=== PATIENT | female | born 1960 | race Caucasian/White ===

== ENCOUNTER → 2016-09-21 | Day surgery (SDC) | payer BC, OTHER ==
[~2016-09-21] MED LIST: ACETAMINOPHEN PO; BACTRIM DS TABL1 TA1 PO; CLEOCIN PO; CORGARD PO; CORGARD80 MG; GLYXAMBI 10 MG1 EACH; LISINOPRIL10 MG; METFORMIN; METFORMIN PO; PREDNISONE PO; PROTONIX; PYRIDIUM PO; ZESTORETIC 20/11 TAB PO; ZOCOR PO
--- NOTE | ~2016-09-21 | OR ---
Unit #: [id number] #: [id number] Patient: SUDHEER ZAPATA [id number] [address] [place], [place] [address] [id number] MR#: [id number] NAME: SUDHEER ZAPATA. ROOM: Date of Procedure: 09/21/2016 Admission Date: 09/21/2016 Surgeon: Monico Radford M.D. : 1960 Attending Physician: Monico Radford M.D. Referring Physician: Monico Radford M.D. Primary Care Physician: Bertram Valles M.D. OPERATIVE REPORT PRIMARY CARE PHYSICIAN Bertram Valles M.D. PREOPERATIVE DIAGNOSES Colorectal cancer screening. The patient has remote history of colonic polyps removed more than 10 years ago. PROCEDURE PERFORMED Colonoscopy up to cecum and terminal ileum with excellent preparation and good visualization. POSTOPERATIVE DIAGNOSES Mild sigmoid and descending colon diverticulosis. Otherwise, examination was normal up to cecum and terminal ileum. The quality of the prep was excellent. No polyps were seen. RECOMMENDATIONS Repeat colonoscopy in 5 years. SEDATION USED MAC. DESCRIPTION OF PROCEDURE Following detailed explanation of the potential risks and complications of a colonoscopy, namely perforation, bleeding, and complication related to sedation, the patient was brought to GI lab and laid in the left lateral decubitus position. A digital rectal examination was performed, which was normal. Lubricated tip of the Olympus video colonoscope was inserted through the anus and advanced under direct vision. The scope was advanced past rectosigmoid into descending colon. Scant small diverticula were noticed in this area. The scope tip was then navigated all the way up to cecum with visualization of the ileocecal valve and the appendiceal orifice. Preparation was excellent with good visualization and photodocumentation was obtained. Last few inches of the terminal ileum were also visualized after intubation of the ileocecal valve and appeared normal. Successive segments of the colonic mucosa were examined upon withdrawal and appeared unremarkable. There being no polyps, mass lesions, or AVMs. Other than the scant diverticula, no other abnormalities were noted. The patient did not have any hemorrhoids at the anal verge. The scope was then withdrawn and the patient returned to the recovery area. She tolerated the procedure without any postprocedure complications. Unit #: [id number] #: [id number] Patient: SUDHEER ZAPATA Dictated by... Ernie Marcum/vinod TD: 09/21/2016 16:47 JOB #: [id number] CC: Bertram Valles M.D. OPERATIVE REPORT Page 1 of 1 X Monico Radford MD X PROCEDURE OPERATIVE NOTE
== END | disposition home or self-care (01) ==
LOC: COPS 07:28
PROVIDERS: Internal Medicine Gastroenterology
PROC: 0DJD8ZZ Inspection of Lower Intestinal Tract, Via Natural or Artificial Opening Endoscopic (ICD-10-PCS; principal; 2016-09-21 09:00)
DX: Z12.11 Encounter for screening for malignant neoplasm of colon (principal); Z86.010 Personal history of colon polyps; K57.30 Diverticulosis of large intestine without perforation or abscess without bleeding; K21.9 Gastro-esophageal reflux disease without esophagitis; I10 Essential (primary) hypertension; E05.90 Thyrotoxicosis, unspecified without thyrotoxic crisis or storm; Z79.899 Other long term (current) drug therapy; F17.200 Nicotine dependence, unspecified, uncomplicated; Z90.710 Acquired absence of both cervix and uterus; Z98.51 Tubal ligation status
CPT/HCPCS: 82947; J2250